=== PATIENT | female | born 1995 ===

== ENCOUNTER 2017-03-02 09:06 | Emergency (ER) | payer MEDICAID, OTHER ==
[2017-03-02 09:09] VITALS: BMI 21.4
[2017-03-02 09:11] VITALS: BP 114/70; PULSE 83; RESP 18; TEMP 98.2; O2SAT 98
--- NOTE | 2017-03-02 11:03 | RAD ---
HISTORY: back pain COMPARISON: No prior. FINDINGS: BONES: Alignment maintained. No fracture. DISC SPACES: Normal. SOFT TISSUES: Normal. OTHER FINDINGS: None. IMPRESSION: Normal radiographs of the thoracic spine.
--- NOTE | 2017-03-02 11:05 | ED PDOC ---
HPI: Back Time Seen by Provider: 03/02/17 09:10 Chief Complaint (Nursing): Back Pain Chief Complaint (Provider): Back Pain History Per: Patient History/Exam Limitations: no limitations Onset/Duration Of Symptoms: Days (on and off for 1 week but severe this morning) Current Symptoms Are (Timing): Still Present Additional Complaint(s): 22 y/o female presents to the emergency department with a complaint of an on/ off upper back pain for 1 week that worsened when she woke up this morning. Reports taking Tylenol this morning (allergic to Motrin). Denies fall, trauma, fever, chills, cough, chest pain, and abdominal pain. PMD: None Past Medical History Reviewed: Historical Data, Nursing Documentation, Vital Signs Vital Signs: Last Vital Signs Temp 98.2 F 03/02/17 09:09 Pulse 83 03/02/17 09:09 Resp 18 03/02/17 09:09 BP 114/70 03/02/17 09:09 Pulse Ox 98 03/02/17 09:09 - Medical History PMH: Denies: Anemia, Anxiety, Depression, HIV, HTN, Kidney Stones, Chronic Kidney Disease - Surgical History Surgical History: (1) - Family History Family History: States: Unknown Family Hx - Social History Current smoker - smoking cessation education provided: No Alcohol: None Drugs: Denies - Home Medications Home Medications: Ambulatory Orders Medication Instructions Recorded Ciprofloxacin [Cipro] 500 mg PO BID #0 tab 10/09/15 Nitrofurantoin Macrocrystals 100 mg PO BID #14 cap 10/12/15 [Macrobid] Cyclobenzaprine [Cyclobenzaprine 10 mg PO TID PRN #5 tab 03/02/17 HCl] - Allergies Allergies/Adverse Reactions: Allergies Allergy/AdvReac Type Severity Reaction Status Date / Time ibuprofen [From Motrin] Allergy RASH Verified 10/08/15 18:51 Penicillins Allergy RASH Verified 10/08/15 18:51 Review of Systems ROS Statement: Except As Marked, All Systems Reviewed And Found Negative Constitutional: Negative for: Fever, Chills Cardiovascular: Negative for: Chest Pain Respiratory: Negative for: Cough Gastrointestinal: Negative for: Abdominal Pain Musculoskeletal: Positive for: Back Pain (Upper) Physical Exam - Reviewed Nursing Documentation Reviewed: Yes Vital Signs Reviewed: Yes - Physical Exam Appears: Positive for: Non-toxic, No Acute Distress Head Exam: Positive for: ATRAUMATIC, NORMAL INSPECTION, NORMOCEPHALIC Skin: Positive for: Normal Color, Warm, Dry Cardiovascular/Chest: Positive for: Regular Rate, Rhythm. Negative for: Murmur Respiratory: Positive for: Normal Breath Sounds. Negative for: Accessory Muscle Use, Respiratory Distress Gastrointestinal/Abdominal: Positive for: Normal Exam, Soft. Negative for: Tenderness Back: Positive for: Normal Inspection, Other (No hematoma to the back. No bony step-offs. No spinal tenderness.). Negative for: L CVA Tenderness, R CVA Tenderness Extremity: Positive for: Normal ROM. Negative for: Pedal Edema Neurologic/Psych: Positive for: Alert, Oriented - ECG O2 Sat by Pulse Oximetry: 98 (RA) Pulse Ox Interpretation: Normal Medical Decision Making Medical Decision Making: Time: 09:52 Initial impression: Back pain Initial plan: --Flexeril 10 mg PO --Dorsal (Thoracic) Spine (RAD) --Reevaluation Time: 11:02 --Thoracic Spine FINDINGS: BONES: Alignment maintained. No fracture. DISC SPACES: Normal. SOFT TISSUES: Normal. OTHER FINDINGS: None. IMPRESSION: Normal radiographs of the thoracic spine. Time: 11:30 Upon provider reevaluation patient is feeling better, is medically stable, and requires no further treatment in the ED at this time. Patient will be discharged home with Rx for cyclobenzaprine HCL 10 mg. Counseling was provided and all questions were answered regarding diagnosis and need for follow up with primary care doctor. There is agreement to discharge plan. Return if symptoms persist or worsen. Clinical Impression: Back pain Scribe Attestation: Documented by Yanet Chahal, acting as a scribe for Charlie Carlos MD. Provider Scribe Attestation: All medical record entries made by the Scribe were at my direction and personally dictated by me. I have reviewed the chart and agree that the record accurately reflects my personal performance of the history, physical exam, medical decision making, and the department course for this patient. I have also personally directed, reviewed, and agree with the discharge instructions and disposition. Disposition - Clinical Impression Clinical Impression: Back pain - Patient ED Disposition Is Patient to be Admitted: No Counseled Patient/Family Regarding: Studies Performed, Diagnosis, Need For Followup, Rx Given - Disposition Referrals: [facility] [Outside] [facility] [Outside] Disposition: Routine/Home Disposition Time: 11:00 Condition: IMPROVED Additional Instructions: FOLLOW UP WITH YOUR PRIMARY DOCTOR IN 1-2 DAYS RETURN TO THE ED WITH ANY WORSENING OR CONCERNING SYMPTOMS. Prescriptions: Cyclobenzaprine [Cyclobenzaprine HCl] 10 mg PO TID PRN #5 tab PRN Reason: Pain, Mild (1-3) Instructions: Back Pain (ED) Print Language: ARMENIAN
== END 2017-03-02 12:13 | disposition home or self-care (01) ==
LOC: H.ER 09:06
DX: M54.9 Dorsalgia, unspecified (principal)

== ENCOUNTER 2017-04-24 20:21 | Emergency (ER) | payer SELFPAY ==
[2017-04-24 20:21] VITALS: BMI 21.4
[2017-04-24 20:26] VITALS: BP 137/65; PULSE 112; RESP 20; TEMP 98.9; O2SAT 98
[2017-04-24] MEDS ORDERED: Lactated Ringer's 1,000 ML IV STA (20:50)
[2017-04-24] MEDS ORDERED: DiphenhydrAMINE 50 mg/ml Inj IVP STA (21:28)
[2017-04-24 22:04] LABS: BASO # 0.1 K/uL (0.0-0.2); BASO % 1.1 % (0.0-2.0); EOS # 0.1 K/uL (0.0-0.7); HEMATOCRIT 39.9 % (34.0-47.0); LYMPH # 2.5 K/uL (1.0-4.3); LYMPH % 18.7 % (20.0-40.0); MEAN CELL VOLUME 88.1 fl (81.0-99.0); MEAN CORPUSCULAR HEMOGLOBIN 28.5 pg (27.0-31.0); MEAN CORPUSCULAR HGB CONC 32.3 g/dL (33.0-37.0); MEAN PLATELET VOLUME 8.3 fl (7.2-11.7); MONO # 0.7 K/uL (0.0-0.8); NEUT # 9.8 K/uL (1.8-7.0); NEUT % 74.2 % (50.0-75.0); RED CELL DISTRIBUTION WIDTH 14.3 % (11.5-14.5); WHITE BLOOD COUNT 13.2 K/uL (4.8-10.8)
[2017-04-24 22:08] LABS: ALB/GLOB RATIO 1.4 (1.0-2.1); ALKALINE PHOSPHATASE 109 U/L (38-126); ALT/SGPT 30 U/L (9-52); AST/SGOT 25 U/L (14-36); BILIRUBIN,TOTAL 0.5 mg/dl (0.2-1.3); BLOOD UREA NITROGEN 16 mg/dl (7-17); CARBON DIOXIDE 23 mmol/L (22-30); CHLORIDE 103 mmol/L (98-107); GFR AFRICAN-AMERICAN > 60; GLUCOSE,RANDOM 102 mg/dL (65-105); POTASSIUM 3.8 MMOL/L (3.6-5.0); SODIUM 140 mmol/l (132-148); TOTAL PROTEIN 8.4 G/DL (6.3-8.2)
--- NOTE | 2017-04-24 22:25 | ED PDOC ---
HPI: Headache Time Seen by Provider: 04/24/17 20:41 Chief Complaint (Nursing): Headache Chief Complaint (Provider): Headache History Per: Patient History/Exam Limitations: no limitations Onset/Duration Of Symptoms: Days (x1) Current Symptoms Are (Timing): Still Present Additional Complaint(s): Maged Mercado is a 22 year old female who presents to the emergency department with a complaint of non-thunderclap, frontal headache described as "constant squeezing" associated with photophobia. Denied neck pain, nausea, vomiting, fever, visual changes or focal weakness. Patient stated she took Tylenol with no relief of symptoms. PMD: none provided Past Medical History Reviewed: Historical Data, Nursing Documentation, Vital Signs Vital Signs: Last Vital Signs Temp 98.9 F 04/24/17 20:24 Pulse 112 H 04/24/17 20:24 Resp 20 04/24/17 20:24 BP 137/65 04/24/17 20:24 Pulse Ox 98 04/24/17 20:24 - Medical History PMH: Denies: Anemia, Anxiety, Depression, HIV, HTN, Kidney Stones, Chronic Kidney Disease - Surgical History Surgical History: No Surg Hx, (1) - Family History Family History: States: Unknown Family Hx - Social History Current smoker - smoking cessation education provided: No Alcohol: None Drugs: Denies - Home Medications Home Medications: Ambulatory Orders Medication Instructions Recorded Ciprofloxacin [Cipro] 500 mg PO BID #0 tab 10/09/15 Nitrofurantoin Macrocrystals 100 mg PO BID #14 cap 10/12/15 [Macrobid] Cyclobenzaprine [Cyclobenzaprine 10 mg PO TID PRN #5 tab 03/02/17 HCl] - Allergies Allergies/Adverse Reactions: Allergies Allergy/AdvReac Type Severity Reaction Status Date / Time ibuprofen [From Motrin] Allergy RASH Verified 10/08/15 18:51 Penicillins Allergy RASH Verified 10/08/15 18:51 Review of Systems ROS Statement: Except As Marked, All Systems Reviewed And Found Negative Constitutional: Negative for: Fever Eyes: Positive for: Other (photophobia). Negative for: Vision Change Gastrointestinal: Negative for: Nausea, Vomiting Musculoskeletal: Negative for: Neck Pain Neurological: Positive for: Headache (frontal, non-thunderclap). Negative for: Weakness (focal) Physical Exam - Reviewed Nursing Documentation Reviewed: Yes Vital Signs Reviewed: Yes - Physical Exam Appears: Positive for: Non-toxic, Uncomfortable Head Exam: Positive for: ATRAUMATIC, NORMOCEPHALIC Skin: Positive for: Warm, Dry Eye Exam: Positive for: EOMI, PERRL ENT: Negative for: Pharyngeal Erythema, Tonsillar Exudate Neck: Positive for: Painless ROM, Supple Cardiovascular/Chest: Positive for: Regular Rate, Rhythm, Chest Non Tender. Negative for: Murmur Respiratory: Positive for: Normal Breath Sounds. Negative for: Wheezing Gastrointestinal/Abdominal: Positive for: Bowel Sounds, Soft. Negative for: Tenderness, Mass, Distended, Guarding Back: Positive for: Normal Inspection. Negative for: Vertebral Tenderness Extremity: Positive for: Normal ROM. 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 Negative for: Motor/Sensory Deficits, Aphasia, Facial Droop - Laboratory Results Result Diagrams: 04/24/17 21:55 04/24/17 21:55 - ECG O2 Sat by Pulse Oximetry: 98 (RA) Pulse Ox Interpretation: Normal Medical Decision Making Medical Decision Making: Initial Impression: Headache Initial Plan: * CT head without contrast * Urine dipstick * Urine * Tylenol 975mg PO * Benadryl 25mg IVP * Lactated Ringer's 1,000ml IV per 1,000mls/hr * Reglan 10mg IVP EXAM: CT Head Without Intravenous Contrast CLINICAL HISTORY: 22 years old, female; Signs and symptoms; Other: Serrano's dizziness; Additional info : Dizziness headache TECHNIQUE: Axial computed tomography images of the head/brain without intravenous contrast. All CT scans at this facility use one or more dose reduction techniques, viz.: automated exposure control; ma/kV adjustment per patient size (including targeted exams where dose is matched to indication; i.e. head); or iterative reconstruction technique. Coronal and sagittal reformatted images were created and reviewed. COMPARISON: No relevant prior studies available. FINDINGS: Brain: No significant white matter disease. No hemorrhage. No edema. Ventricles: Unremarkable. No ventriculomegaly. Bones/joints: Unremarkable. No acute fracture. Soft tissues: Unremarkable. Sinuses: Unremarkable as visualized. No acute sinusitis. Mastoid air cells: Unremarkable as visualized. No mastoid effusion. IMPRESSION: No acute findings. Thank you for allowing us to participate in the care of your patient. Dictated and Authenticated by: Peg Johnson MD 04/24/2017 10:21 PM Eastern Time ([place] & [place]) 1030p Pt feels better. (Pt has not received IV reglan/beadryl or tylenol yet. Labs demonstrate leukocytosis. No emergently significant lab abnormalities. Scribe Attestation: Documented by Lin Friend, acting as a scribe for Mary Alice Kelly MD. Provider Scribe Attestation: All medical record entries made by the Scribe were at my direction and personally dictated by me. I have reviewed the chart and agree that the record accurately reflects my personal performance of the history, physical exam, medical decision making, and the department course for this patient. I have also personally directed, reviewed, and agree with the discharge instructions and disposition. Disposition - Clinical Impression Clinical Impression: Acute headache Counseled Patient/Family Regarding: Studies Performed, Diagnosis, Need For Followup - Disposition Referrals: [facility] [Outside] - 04/26/17 ([facility] LUN[facility] A HACER MACI ALYSSA EN 2-3 BONDS A CHEQAR DE NUEVO) Disposition: Routine/Home Disposition Time: 22:32 Condition: IMPROVED Instructions: Acute Headache (ED) Print Language: TURKISH
--- NOTE | 2017-04-25 08:31 | CT ---
PROCEDURE: CT HEAD WITHOUT CONTRAST. HISTORY: Dizziness and headache COMPARISON: None available. TECHNIQUE: Axial computed tomography images were obtained through the head/brain without intravenous contrast. Radiation dose: Total exam DLP = 784.75 mGy-cm. This CT exam was performed using one or more of the following dose reduction techniques: Automated exposure control, adjustment of the mA and/or kV according to patient size, and/or use of iterative reconstruction technique. FINDINGS: HEMORRHAGE: No intracranial hemorrhage. BRAIN: Cortes-white matter differentiation is preserved. There is no mass, mass effect or abnormal extra-axial fluid collection. VENTRICLES: The ventricles are normal in size, shape and configuration. CALVARIUM: The skull base and calvarium are normal. PARANASAL SINUSES: Predominantly clear. MASTOID AIR CELLS: Predominantly clear. OTHER FINDINGS: None. IMPRESSION: No acute intracranial abnormality. A preliminary report was provided by [employer] services.
== END 2017-04-24 22:35 | disposition home or self-care (01) ==
LOC: H.ER 20:21
DX: H53.149 Visual discomfort, unspecified (principal); R51 Headache; Z88.0 Allergy status to penicillin; Z86.59 Personal history of other mental and behavioral disorders

== ENCOUNTER 2017-09-07 09:23 | Emergency (ER) | payer OTHER ==
[2017-09-07 09:25] VITALS: BMI 23.8
[2017-09-07 09:27] VITALS: BP 126/79; PULSE 109; RESP 17; TEMP 98.8; O2SAT 96
--- NOTE | 2017-09-07 10:16 | ED PDOC ---
HPI:Nausea, Vomiting, Diarrhea Time Seen by Provider: 09/07/17 09:40 Chief Complaint (Nursing): GI Problem Chief Complaint (Provider): GI Problem History Per: Patient History/Exam Limitations: no limitations Onset/Duration Of Symptoms: Days (x3) Current Symptoms Are (Timing): Still Present Additional Complaint(s): 22 year old female who presents to the emergency department with a complaint of nausea, non-bloody vomiting and non-bloody diarrhea ongoing for 3 days. Denied any fever, chills, abdominal pain or PO toleration. PMD: none provided Past Medical History Reviewed: Historical Data, Nursing Documentation, Vital Signs Vital Signs: Last Vital Signs Temp 98.8 F 09/07/17 09:25 Pulse 109 H 09/07/17 09:25 Resp 17 09/07/17 09:25 BP 126/79 09/07/17 09:25 Pulse Ox 96 09/07/17 09:25 - Medical History PMH: No Chronic Diseases Denies: Anemia, Anxiety, Depression, HIV, HTN, Kidney Stones, Chronic Kidney Disease - Surgical History Surgical History: (1) - Family History Family History: States: Unknown Family Hx - Social History Current smoker - smoking cessation education provided: No Alcohol: None Drugs: Denies - Home Medications Home Medications: Ambulatory Orders Medication Instructions Recorded Ciprofloxacin [Cipro] 500 mg PO BID #0 tab 10/09/15 Nitrofurantoin Macrocrystals 100 mg PO BID #14 cap 10/12/15 [Macrobid] Cyclobenzaprine [Cyclobenzaprine 10 mg PO TID PRN #5 tab 03/02/17 HCl] Famotidine [Pepcid] 20 mg PO Q12 #20 tab 09/07/17 Ondansetron [Zofran] 4 mg PO Q8H #10 tab 09/07/17 - Allergies Allergies/Adverse Reactions: Allergies Allergy/AdvReac Type Severity Reaction Status Date / Time ibuprofen [From Motrin] Allergy RASH Verified 10/08/15 18:51 Penicillins Allergy RASH Verified 10/08/15 18:51 Review of Systems ROS Statement: Except As Marked, All Systems Reviewed And Found Negative Constitutional: Negative for: Fever, Chills Gastrointestinal: Positive for: Nausea, Vomiting (non-bloody), Diarrhea (non- bloody). Negative for: Abdominal Pain, Other (tolerate PO) Physical Exam - Reviewed Nursing Documentation Reviewed: Yes Vital Signs Reviewed: Yes - Physical Exam Appears: Positive for: Well, Non-toxic, No Acute Distress Head Exam: Positive for: ATRAUMATIC ENT: Positive for: Other (dry mucous membranes). Negative for: Normal ENT Inspection Cardiovascular/Chest: Positive for: Regular Rate, Rhythm, Chest Non Tender Respiratory: Positive for: Normal Breath Sounds. Negative for: Decreased Breath Sounds, Wheezing, Respiratory Distress Gastrointestinal/Abdominal: Positive for: Normal Exam, Soft. Negative for: Tenderness Extremity: Positive for: Normal ROM (upper/lower). 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 Negative for: Motor/Sensory Deficits (or focal deficits) - Laboratory Results Result Diagrams: 09/07/17 10:31 09/07/17 10:31 - ECG O2 Sat by Pulse Oximetry: 96 (RA) Pulse Ox Interpretation: Normal - Progress Re-evaluation Time: 13:26 Condition: Improved Medical Decision Making Medical Decision Making: Initial Impression: Nausea, vomiting and diarrhea Initial Plan: * CMP * Urine * Urine dipstick * CBC * NS 1,000ml IV per 200mls/hr * Zofran inj 4mg IVP Scribe Attestation: Documented by Lin Friend, acting as a scribe for Ever Cook MD. Provider Scribe Attestation: All medical record entries made by the Scribe were at my direction and personally dictated by me. I have reviewed the chart and agree that the record accurately reflects my personal performance of the history, physical exam, medical decision making, and the department course for this patient. I have also personally directed, reviewed, and agree with the discharge instructions and disposition. Disposition - Clinical Impression Clinical Impression: Gastroenteritis - Patient ED Disposition Is Patient to be Admitted: No Counseled Patient/Family Regarding: Studies Performed, Diagnosis, Need For Followup, Rx Given - Disposition Referrals: [facility] [Outside] Disposition: Routine/Home Disposition Time: 13:27 Condition: GOOD Prescriptions: Famotidine [Pepcid] 20 mg PO Q12 #20 tab Ondansetron [Zofran] 4 mg PO Q8H #10 tab Instructions: Gastroenteritis (ED) Forms: [employer] (Serbian)
[2017-09-07] MEDS: Sodium Chloride 0.9% 1,000 ML IV STA (10:17)
[2017-09-07 10:42] LABS: BASO % 0.3 % (0.0-2.0); EOS % 0.1 % (0.0-4.0); HEMOGLOBIN 13.7 g/dL (12.0-16.0); LYMPH # 0.9 K/uL (1.0-4.3); LYMPH % 13.2 % (20.0-40.0); MEAN CELL VOLUME 87.2 fl (81.0-99.0); MEAN CORPUSCULAR HEMOGLOBIN 28.6 pg (27.0-31.0); MEAN CORPUSCULAR HGB CONC 32.8 g/dL (33.0-37.0); MEAN PLATELET VOLUME 8.5 fl (7.2-11.7); MONO # 0.4 K/uL (0.0-0.8); MONO % 6.9 % (0.0-10.0); NEUT # 5.2 K/uL (1.8-7.0); NEUT % 79.5 % (50.0-75.0); RBC 4.8 Mil/uL (3.80-5.20); RED CELL DISTRIBUTION WIDTH 14.3 % (11.5-14.5); WHITE BLOOD COUNT 6.6 K/uL (4.8-10.8)
[2017-09-07 10:49] LABS: ALB/GLOB RATIO 1.3 (1.0-2.1); ALBUMIN 4.6 g/dL (3.5-5.0); ALT/SGPT 39 U/L (9-52); AST/SGOT 26 U/L (14-36); BLOOD UREA NITROGEN 10 mg/dl (7-17); CALCIUM 8.9 mg/dL (8.4-10.2); GFR AFRICAN-AMERICAN > 60; GFR NON-AFRICAN AMERICAN > 60
== END 2017-09-07 13:45 | disposition home or self-care (01) ==
LOC: H.ER 09:23
DX: K52.9 Noninfective gastroenteritis and colitis, unspecified (principal); Z88.0 Allergy status to penicillin; Z88.6 Allergy status to analgesic agent
CPT/HCPCS: 80053; 81025; 85025; 96374; 99283; J2405; J7040

== ENCOUNTER 2018-01-21 21:01 | Emergency (ER) | payer OTHER ==
[2018-01-21 21:01] VITALS: BMI 23.8
[2018-01-21 21:09] VITALS: BP 112/74; PULSE 98; RESP 16; TEMP 98.1; O2SAT 99
--- NOTE | 2018-01-21 21:29 | ED PDOC ---
HPI: General Adult Time Seen by Provider: 01/21/18 21:10 Chief Complaint (Nursing): ENT Problem Chief Complaint (Provider): ENT Problem History Per: Patient History/Exam Limitations: no limitations Current Symptoms Are (Timing): Still Present Additional Complaint(s): 22 year old female presents to the emergency department complaining of bilateral ear pain and itchiness associated with decreased hearing since 15:00. Patient states taking Tylenol three times today with no relief, as well as using ear drops. PMD: Trinidad Alvarado Past Medical History Reviewed: Historical Data, Nursing Documentation, Vital Signs Vital Signs: Last Vital Signs Temp 98.1 F 01/21/18 21:06 Pulse 98 H 01/21/18 21:06 Resp 16 01/21/18 21:06 BP 112/74 01/21/18 21:06 Pulse Ox 99 01/21/18 22:37 - Medical History PMH: Denies: Anemia, Anxiety, Depression, HIV, HTN, Kidney Stones, Chronic Kidney Disease - Surgical History Surgical History: (1) - Family History Family History: States: Unknown Family Hx - Home Medications Home Medications: Ambulatory Orders Medication Instructions Recorded Ciprofloxacin [Cipro] 500 mg PO BID #0 tab 10/09/15 Nitrofurantoin Macrocrystals 100 mg PO BID #14 cap 10/12/15 [Macrobid] Cyclobenzaprine [Cyclobenzaprine 10 mg PO TID PRN #5 tab 03/02/17 HCl] Famotidine [Pepcid] 20 mg PO Q12 #20 tab 09/07/17 Ondansetron [Zofran] 4 mg PO Q8H #10 tab 09/07/17 Azithromycin [Zithromax] 500 mg PO DAILY #3 tablet 01/21/18 Cetirizine HCl [Zyrtec] 10 mg PO DAILY #15 tab.rapdis 01/21/18 Fluticasone Propionate [Flonase] 2 spr NS DAILY #1 bottle 01/21/18 Pseudoephedrine [Sudafed Tab] 60 mg PO Q6 PRN #24 tab 01/21/18 - Allergies Allergies/Adverse Reactions: Allergies Allergy/AdvReac Type Severity Reaction Status Date / Time ibuprofen [From Motrin] Allergy RASH Verified 10/08/15 18:51 Penicillins Allergy RASH Verified 02/09/16 18:51 Review of Systems ROS Statement: Except As Marked, All Systems Reviewed And Found Negative ENT: Positive for: Ear Pain (associated with itchiness and decreased hearing bilaterally) Physical Exam - Reviewed Nursing Documentation Reviewed: Yes Vital Signs Reviewed: Yes - Physical Exam Appears: Positive for: Non-toxic, No Acute Distress Head Exam: Positive for: ATRAUMATIC, NORMOCEPHALIC Skin: Positive for: Normal Color, Warm, Dry Eye Exam: Positive for: EOMI, Normal appearance, PERRL ENT: Positive for: TM Is/Are (mildly erythematous to the right TM), Nasal Congestion, Other (decreased cone of light bilaterally) Neck: Positive for: Normal, Painless ROM, Supple Cardiovascular/Chest: Positive for: Regular Rate, Rhythm. Negative for: Murmur Respiratory: Positive for: Normal Breath Sounds. Negative for: Accessory Muscle Use, Rales, Rhonchi, Wheezing, Respiratory Distress Gastrointestinal/Abdominal: Positive for: Normal Exam, Soft. Negative for: Tenderness Back: Positive for: Normal Inspection Extremity: Positive for: Normal ROM Neurologic/Psych: Positive for: Alert, Oriented - ECG O2 Sat by Pulse Oximetry: 99 (RA) Pulse Ox Interpretation: Normal Medical Decision Making Medical Decision Making: Time: 21:18 Initial Impression: allergies, ear pain Initial Plan: --pseudoephedrine 60mg PO Scribe Attestation: Documented by Adriana Kelly, acting as a scribe for Rosario Nickerson PA-C Provider Scribe Attestation: All medical record entries made by the Scribe were at my direction and personally dictated by me. I have reviewed the chart and agree that the record accurately reflects my personal performance of the history, physical exam, medical decision making, and the department course for this patient. I have also personally directed, reviewed, and agree with the discharge instructions and disposition. Disposition - Clinical Impression Clinical Impression: Otitis media, Seasonal allergic rhinitis - Patient ED Disposition Is Patient to be Admitted: No - Disposition Referrals: [facility] [Outside] Disposition: Routine/Home Disposition Time: 21:29 Condition: FAIR Prescriptions: Azithromycin [Zithromax] 500 mg PO DAILY #3 tablet Cetirizine HCl [Zyrtec] 10 mg PO DAILY #15 tab.rapdis Fluticasone Propionate [Flonase] 2 spr NS DAILY #1 bottle Pseudoephedrine [Sudafed Tab] 60 mg PO Q6 PRN #24 tab PRN Reason: Nasal Congestion Instructions: Ear Infections (Otitis Media), Seasonal Allergies in Adults Forms: [employer] (Faroese)
== END 2018-01-21 21:33 | disposition home or self-care (01) ==
LOC: H.ER 21:01
DX: H66.90 Otitis media, unspecified, unspecified ear (principal); J30.2 Other seasonal allergic rhinitis; Z88.0 Allergy status to penicillin; Z88.6 Allergy status to analgesic agent